=== PATIENT | female | born 1990 | race Caucasian/White ===

== ENCOUNTER → 2018-02-01 14:11 | Outpatient (CLI) | payer OTHER, SELFPAY ==
--- NOTE | 2018-02-01 14:11 | DT_ITS ---
This patient was seen during an EMR downtime January 28, 2018 - February 04, 2018. This patient may have a combination of paper and electronic documentation or all paper documentation. All documentation is viewable within the e-chart portion of [facility] for each patient visit.
[2018-02-04 18:19] LABS: Hematocrit 38.8 % (37-47); Hemoglobin 12.8 g/dl (12.0-15.0); Mean Corpuscular Hgb 30.8 pg (27.0-32.0); Mean Corpuscular Volume 93.3 fL (81-99); Red Blood Count 4.16 M/mm3 (4.2-5.4); White Blood Count 10.4 K/mm3 (4.4-11.0)
[2018-02-04 18:20] LABS: Mean Platelet Vol. 10.4 fl (6.2-12.0); Platelet Count 225 K/mm3 (150-450); RBC Distribution Width CV 13.2 % (11.6-14.6); RBC Distribution Width SD 44.9 fl (35.1-43.9); Scan Indicated on CBC? Y/N NO
[2018-02-05 15:57] LABS: Glucose Challenge Gest 1H 50g 83 mg/dL (70-140)
== END ==
PROVIDERS: Visit Provider Obstetrics & Gynecology
DX: Z34.83 Encounter for supervision of other normal pregnancy, third trimester (principal)
CPT/HCPCS: 82950; 85027; 86850

== ENCOUNTER → 2018-03-18 14:25 | Outpatient (CLI) | payer OTHER, SELFPAY ==
[2018-03-18 18:35] LABS: Group B Strep DNA By PCR Negative (Negative); Internal Control PASS; Probe Check PASS; Specimen Processing Control PASS
== END ==
PROVIDERS: Visit Provider Obstetrics & Gynecology
DX: Z36.85 Encounter for antenatal screening for Streptococcus B (principal)
CPT/HCPCS: 87081; 87653

== ENCOUNTER 2018-04-09 02:18 | Inpatient (IN) | payer OTHER, SELFPAY ==
[2018-04-09 02:16] LABS: ROM Internal Control Test YES-OK TO RESULT pt. (Internal QC); ROM Patient Test POSITIVE (Negative)
[2018-04-09] MEDS: Lactated Ringers 1,000 ML 50 ML IV ×4 (02:40→23:00)
[2018-04-09 02:44] VITALS: BMI 29.5
[2018-04-09 02:54] LABS: Hematocrit 35.9 % (37-47); Hemoglobin 12.3 g/dl (12.0-15.0); Mean Corp Hgb Conc 34.3 g/gl (32-36); Mean Corpuscular Hgb 31.5 pg (27.0-32.0); Mean Corpuscular Volume 92.1 fL (81-99); Mean Platelet Vol. 10.5 fl (6.2-12.0); Platelet Count 197 K/mm3 (150-450); RBC Distribution Width CV 12.4 % (11.6-14.6); RBC Distribution Width SD 40.9 fl (35.1-43.9); White Blood Count 9.6 K/mm3 (4.4-11.0)
[2018-04-09 02:55] LABS: Scan Indicated on CBC? Y/N NO
[2018-04-09] MEDS: Oxytocin 30 units/NS 500 ml 30 UNITS/500 ML IV.SOLN IV (03:45)
--- NOTE | 2018-04-09 04:22 | PCM.PN.BLA ---
Progress Note LABOR PROGRESS NOTE SROM at 40 1/7 wk confirmed on exam at admission. female AVSS Pitocin at 2 mIU/min (0344) CX 1.5/50/-3 on admission EFM: 130-140s avg variability. Accels to 165 Category I tracing UCs irregular, at times q 9 mins. A/P: 40 1/7 wk SROM. Pitocin per protocol. Watch progress.
--- NOTE | 2018-04-09 12:33 | PCM.PN.BLA ---
Progress Note LABOR PROGRESS NOTE Very uncomfortable now. Used tub for about 1 hr AVSS pitocin at 7 mIU/min EFM 140 with small accels. UCs q 1-2 min now spacing to q 1 1/2 to 5 mins on less pitocin CX 2/70/-2 per RN check at 11 am A/P: 40 1/7 wk SROM Pitocin augmentation. Considering Nubain now. Continue labor position changes prn.
[2018-04-09] MEDS: Nalbuphine 10 MG/ML Ampul IV (12:34)
[2018-04-09] MEDS: fentaNYL-bupivacaine (epidural) 100 ML BAG EPIDURAL ×2 (14:16→18:54)
--- NOTE | 2018-04-09 17:23 | PCM.PN.BLA ---
Progress Note LABOR PROGRESS NOTE Comfortable and sleeping with epidural AVSS pitocin at 8 mIU/min EFM 140s min to avg variability Accels. category I tracing. UCs dysfunctional appearing pattern with coupling and spacing. q 1 - 4 1/2 mins CX: per last RN check /-2 last check. A/P: 40 1/7 wk SROM. Just after MN last night. Continue pitocin. Position changes to assist rotation , descent. IUPC in place to guide Pitocin administration.
--- NOTE | 2018-04-09 21:08 | PCM.PN.BLA ---
Progress Note LABOR PROGRESS NOTE Sitting up in high fowlers NAD AVSS Pitocin induction after SROM last night just after MN. EFM 130-140 avg variability. Accels Category I tracing UCs q 1 1/2 - 3 mins CX: 8 / -1 per RN check A/P: 40 1/7 wk SROM. Adequate progress. continue labor.
[2018-04-10] MEDS: Lactated Ringers 1,000 ML 15 ML IV (01:57)
[2018-04-10] MEDS: Oxytocin 30 units/NS 500 ml 30 UNITS/500 ML IV.SOLN 334 UNITS IV (02:05)
[2018-04-10] MEDS: Methylergonovine 0.2 MG/ML Ampul IM (02:10)
[2018-04-10] MEDS: miSOPROStol 200 MCG Tablet 800 MCG VAGINAL (02:30)
--- NOTE | 2018-04-10 02:30 | PCM.OB.VAG ---
Vaginal Delivery Maternal Presentation: Spontaneous Rupture of Membranes 40 1/7 wk SROM, no regular UCs. Method of Induction: Pitocin Amniotic Membrane Rupture Type: Spontaneous at home Amniotic Fluid Description: Clear Final BETHANY: 04/08/18 Gestational age: 40 Weeks and 2 Days Date of Procedure: 04/10/18 Pre-Operative Diagnosis: 40 1/7 wk labor SROM Post-Operative Diagnosis: 40 2/7 wk Surgery/ Procedure Performed: Spontaneous Vaginal Delivery Type of Anesthesia: Epidural Description of Procedure: of a delarosa viable male over intact perineum to lacerations. Head delivered JULIAN. OP and nares bulb suctioned on perineum no nuchal cord. Shoulders delivered easily to maternal abdomen. Delayed cord clamping. COrd clamped x two then and cut. Routine blood for typing collected. PP exam; 2nd laceration at perineum. No other lacerations Repaired under epidural to hemostatic, intact with 3-0 vicryl. Placenta delivered by spont expulsion, expression. 3V cord, normal appearing with trailing membranes. EBL initially 350 cc. Uterine atony of lower uterine segment noted. IM Methergine. Hemabate IM. Cytotec 1000 mcg VT x one all given. with good response. Presentation: Vertex, JULIAN Placental Delivery Description: Spontaneous, Expressed Placenta Disposition: [facility] Cord Vessel Description: 3 Vessels Cord Entanglement: None Drain: [place] to straight drain Estimated Blood Loss: 350 to 400 A gender: Male (1 minute): 8 (5 minute): 8 Episiotomy Description: None Laceration: Midline, Perineal Extension/lac, 2nd degree Medications given after delivery: IV Pitocin, IM Methergin, IM Hemabate - Cytotec 1000 mcg VT x one. for uterine atony, lower uterine segment (low gr temp, on pitocin prolonged SROM) Complications: None
[2018-04-10] MEDS: Oxytocin 30 units/NS 500 ml 30 UNITS/500 ML IV.SOLN 167 UNITS IV (02:35)
[2018-04-10] MEDS: Ondansetron 4 MG/2 ML Vial IV (02:35)
--- NOTE | 2018-04-10 02:35 | PCM.DCVAG ---
Discharge Diet: No Restrictions Discharge Activity: May Shower, May Take a Tub Bath May resume sexual activity in: 4-6 weeks Additional Activity Instructions:: Nothing in the vagina for 4-6 weeks. You may return to work/school in 6 weeks. Additional Instructions: If you experience any of the following, contact your healthcare provider. Bleeding that soaks a pad every hour for 2 hours Fever 100.4 or higher Unrelieved abdominal pain Problems urinating (including inability to urinate or burning while urinating). Visual changes Severe headache Flu-like symptoms Pain or redness in one of both of your breasts Pain, warmth, tenderness or swelling in your legs, especially the calf area Frequent nausea and vomiting Symptoms of depression or anxiety If you experience any of the following, call 911 or go to the nearest Emergency Room. Chest pain Problems breathing Seizure activity Partial or complete paralysis of a body part, slurred speech, weakness or drooping of the face, or a sudden inability to walk or hold your balance Allergies/Adverse Reactions: Allergies No Known Allergies Allergy (Verified 04/09/18 03:02) Medications to take at Discharge [place]-3 Fatty Acids [Fish Oil] 500 mg PO DAILY 04/09/18 Vits [Prenatabs FA] 1 tablet PO DAILY 04/09/18 Please Follow Up With: Marian Ashraf MD - [phone] When: Call to make an appointment with your doctor in 6 weeks. Primary Care Physician: Care Physician,No Primary [Primary Care Provider] - Test Results: Test results from this visit will be discussed in further detail at your follow-up appointment, if applicable. Proposed Discharge Date: 04/10/18
[2018-04-10] MEDS: proMETHazine 25 MG/ML Syringe IV (03:14)
[2018-04-10] MEDS: Cefazolin 1 GM/50 ML BAG IV (03:30)
[2018-04-10] MEDS: Naproxen 250 MG Tablet PO ×2 (04:32→22:59)
[2018-04-10] MEDS: 0.9% Saline Lock 10 ML Syringe IV (04:34)
--- NOTE | 2018-04-10 08:23 | PCM.PN.OB ---
Subjective: No complaints. She is working on latch. Objective: AVSS - Physical Exam General: Alert, Oriented x3, Cooperative HEENT: Atraumatic, Normocephalic Psych/Mental Status: Alert and oriented to time, place, person, mood and affect Weight: 73.2 kg Body Mass Index (BMI) 29.5 Intake and Output for Last 24 Hours 04/08/18 04/09/18 04/10/18 23:59 23:59 23:59 Intake Total 2982 / 2982 2802 / 2802 Output Total 400 / 400 1650 / 1650 Balance 2582 / 2582 1152 / 1152 Medical Necessity - Tobacco Use Smoking Status: Never smoker Assessment/Plan 27yo s/p doing well. -Rh negative - f/u screen - Rubella immune -Routine care - consultation today
[2018-04-10 08:55] VITALS: BP 114/58; PULSE 79; RESP 20; TEMP 37.7; O2SAT 96
[2018-04-10] MEDS: Prenatal Vits Tablet 1 TABLET PO (10:47)
[2018-04-10 12:30] VITALS: BP 98/50; PULSE 82; TEMP 36.8; O2SAT 96
[2018-04-10 16:00] VITALS: BP 103/67; PULSE 73; TEMP 37; O2SAT 98
[2018-04-10 20:00] VITALS: BP 111/60; PULSE 79; RESP 18; TEMP 37; O2SAT 99
[2018-04-11 00:30] VITALS: BP 98/60; PULSE 80; RESP 16; TEMP 36.9; O2SAT 97
[2018-04-11 04:40] VITALS: BP 101/58; PULSE 65; RESP 18; TEMP 36.4; O2SAT 97
[2018-04-11 08:00] VITALS: BP 104/66; PULSE 68; RESP 16; TEMP 37.1; O2SAT 97
[2018-04-11] MEDS: Carboprost Tromethamine 250 MCG/ML Ampul IM (08:54)
[2018-04-11] MEDS: Prenatal Vits Tablet 1 TABLET PO (09:50)
[2018-04-11] MEDS: Senna/Docusate Sodium 1 Tablet PO (12:50)
[2018-04-11 14:00] VITALS: BP 108/67; PULSE 76; RESP 16; TEMP 36.7; O2SAT 100
[2018-04-11 19:30] VITALS: BP 109/59; PULSE 104; RESP 18; TEMP 36.4; O2SAT 100
[2018-04-12 02:40] VITALS: BP 101/57; PULSE 66; RESP 16; TEMP 37.2; O2SAT 96
[2018-04-12] MEDS: Naproxen 250 MG Tablet PO (03:04)
[2018-04-12 09:40] VITALS: BP 114/55; PULSE 80; RESP 20; TEMP 36.5; O2SAT 98
[2018-04-12] MEDS: Senna/Docusate Sodium 1 Tablet PO (09:46)
[2018-04-12] MEDS: Prenatal Vits Tablet 1 TABLET PO (09:47)
== END 2018-04-12 12:10 | disposition home or self-care (01) | DRG 775 ==
LOC: WPOUT 02:21 → WP 02:21
PROVIDERS: Admitting Provider Obstetrics & Gynecology; Visit Provider Obstetrics & Gynecology
DX: O48.0 Post-term pregnancy (principal); Z3A.40 40 weeks gestation of pregnancy; Z37.0 Single live birth; O70.1 Second degree perineal laceration during delivery
CPT/HCPCS: 59025; 59050; 84112; 85027; 85461; 86850; 86900; 90384; 99218; J7120; A4216; G0378; J2405; J2790

== ENCOUNTER 2018-04-17 13:14 | Outpatient (CLI) | payer OTHER, SELFPAY | END 2018-04-17 14:15 | disposition home or self-care (01) | LOC: WPOUT 13:18 → WP 13:19 | PROVIDERS: Visit Provider Obstetrics & Gynecology | DX: R63.3 Feeding difficulties (principal) ==

== ENCOUNTER → 2021-04-12 14:55 | Outpatient (CLI) | payer OTHER, SELFPAY ==
[2021-04-12 16:07] LABS: Absolute Lymphocyte Count 2.28 X10^3/uL (0.83-4.51); Absolute Neutrophil Count 5.9 X10^3/uL (2.0-7.7); Basophil# 0.03 X10^3/uL; Basophil% 0.3 % (0-1); Eosinophil# 0.12 X10^3/uL; Eosinophils% 1.3 % (0-5); Hematocrit 41.5 % (37-47); Hemoglobin 13.6 g/dL (12.0-15.0); Lymphocyte # 2.28 X10^3/ul (0.83-4.51); Lymphocyte % 25.4 % (19-41); Mean Corp Hgb Conc 32.8 g/dL (32-36); Mean Corpuscular Hgb 29.4 pg (27.0-32.0); Mean Corpuscular Volume 89.6 fL (81-99); Mean Platelet Vol. 10.1 fl (6.2-12.0); Monocyte# 0.58 X10^3/uL; Monocyte% 6.5 % (0-10); NRBC Flagged by Analyzer 0 % (0-5); Neutrophil # 5.92 X10^3/uL (2.7-7.7); Neutrophil % 66.1 % (47-70); Platelet Count 267 K/mm3 (150-450); RBC Distribution Width CV 12.4 % (11.6-14.6); RBC Distribution Width SD 40.6 fl (35.1-43.9); Red Blood Count 4.63 M/mm3 (4.2-5.4)
[2021-04-13 09:39] LABS: HIV - WCH Non-Reactive (Nonreactive); Hepatitis B Surface Antigen Non-Reactive (Nonreactive); Hepatitis C Antibody Non-Reactive (Nonreactive); Rubella IgG Reactive (Nonreactive); Syphilis Antibodies Non-reactive
[2021-04-15 10:44] LABS: Chlamydia By Nucleic Acid AMP Negative (Negative)
[2021-04-15 10:55] LABS: Gonococcus By Nucleic Acid AMP Negative (Negative)
== END ==
PROVIDERS: Visit Provider Obstetrics & Gynecology
DX: Z34.81 Encounter for supervision of other normal pregnancy, first trimester (principal); Z11.3 Encounter for screening for infections with a predominantly sexual mode of transmission
CPT/HCPCS: 36415; 84443; 85025; 86703; 86762; 86780; 86803; 87086; 87088; 87340; 87491; 87591

== ENCOUNTER → 2021-05-10 15:23 | Outpatient (CLI) | payer OTHER, SELFPAY ==
[2021-05-13 03:07] LABS: AFP MoM Value 0.86 (.); AFP Value-EIA 31.8 ng/mL (.); Comment Report (.); DIA MoM Value 0.48 (.); DSR (By Age) 757 (.); DSR (Second Trimester) 7823 (.); Gestat. Age Based On As provided (.); Insulin Dep Diabetes No (.); Maternal Age At EDD 29.3 yr (.); hCG MoM 0.85 (.)
== END ==
PROVIDERS: Visit Provider Obstetrics & Gynecology
DX: Z34.82 Encounter for supervision of other normal pregnancy, second trimester (principal)
CPT/HCPCS: 36415; 82105; 82677; 84702